=== PATIENT | female | born 1955 | race Caucasian/White ===

== ENCOUNTER → 2020-03-31 14:34 | Outpatient (BNVA) | payer MEDICARE, SELFPAY | PROVIDERS: Family Provider Family Medicine; PCP Family Medicine; Visit Provider Nurse Practitioner Family | DX: K92.1 Melena (principal); R10.9 Unspecified abdominal pain; R82.90 Unspecified abnormal findings in urine | CPT/HCPCS: 80053; 81000; 82270; 85025 ==

== ENCOUNTER 2020-04-16 13:47 | Outpatient (CLI) | payer MEDICARE, SELFPAY ==
--- NOTE | 2020-04-16 14:00 | MM_ITS ---
WS: [id number] BILATERAL SCREENING DIGITAL MAMMOGRAM WITH CAD HISTORY: screening COMPARISON: 08/22/2015 and 08/01/2014 Bilateral CC and MLO views submitted. Computer aided detection analyzed. Breast composition: The breasts are heterogeneously dense, which may obscure small masses. No suspici ous masses, microcalcifications or architectural distortion. Benign calcifications in each breast. MM/[place] [id number] IMPRESSION: BI-RADS: 2-Benign FOLLOW UP: 1 Year Follow-up
== END 2020-04-16 13:48 | disposition home or self-care (01) ==
LOC: RADSHAW 14:02
PROVIDERS: PCP Family Medicine; Visit Provider Nurse Practitioner Family
DX: Z12.31 Encounter for screening mammogram for malignant neoplasm of breast (principal)
CPT/HCPCS: 77067

== ENCOUNTER → 2020-04-17 10:00 | Outpatient (BNVA) | payer MEDICARE, SELFPAY | PROVIDERS: PCP Family Medicine; Visit Provider Family Medicine | DX: M54.5 Low back pain (principal); R10.84 Generalized abdominal pain; R25.2 Cramp and spasm; I10 Essential (primary) hypertension | CPT/HCPCS: 80061; 83735 ==

== ENCOUNTER 2020-04-30 14:01 | Outpatient (CLI) | payer MEDICARE, SELFPAY ==
--- NOTE | 2020-04-30 14:09 | CT_ITS ---
WS: [id number] CT LUNG CANCER SCREENING DLP: 80.06 mGy.cm DIvol: 2.41 mGy CLINICAL INFORMATION SCREENING VISIT: Baseline COMPARISON: 11/29/2016 FINDINGS Diagnostic quality: Satisfactory Comments: None. Lung Nodules: Benign granuloma RIGHT upper lobe. There are numerous bilateral subcentimeter nodules w hich have been stable since 11/29/2016. 6 mm slightly spiculated nodule RIGHT lower lobe, image 136 of series 3 is stable. 4 mm partially calcified nodule superior segment LEFT lower lobe, image 55 of se terrance 3 is stable. Additional lobulated nodule in the periphery LEFT upper lobe measures 5.0 mm, image 97 of series 3. There are no new or increasing nodules. No areas of groundglass attenuation. No endo bronchial lesions. Lungs: Biapical pleural thickening and scarring is stable. Chronic emphysema. Heart: Normal size heart. Other findings: Moderate sized hiatal hernia. Very mild atherosclerosis aorta. Prior cholecystectomy. Moderate increase in thoracic kyphosis. CT/CT lung screening [id number] IMPRESSION: LUNG-RADS: 2-Benign Appearance or Behavior FOLLOW UP: 12 Month: Continue annual screening with LDCT
--- NOTE | 2020-04-30 14:27 | XR_ITS ---
WS: [id number] SCREENING DEXA SCAN [employer] CLINICAL INFORMATION: post menopausal. COMPARISON: None. FINDINGS: The L1-L4 bone mineral density measures 0.955 g/cm2. This corresponds to a T score score of -1.9 and Z score of -0.8. Left femoral neck bone mineral density measures 0.897 g/cm2. This corresponds to a T score of -0.9 an d Z score of 0.0. Right femoral neck bone mineral density measures 0.898 g/cm2. This corresponds to a T score -0.9of an d Z score of 0.0. Mean femoral neck bone mineral density measures 0.897 g/cm2. This corresponds to a T score of -0.9 an d Z score of 0.0. XR/XR DEXA axial skeleton* [id number] IMPRESSION: Osteopenia Patient's FRAX calculated 10 year probability for major osteoporotic fracture i s 8.7 % and osteoporotic hip fracture is 0.9%.
== END 2020-04-30 14:02 | disposition home or self-care (01) ==
LOC: RAD 14:05
PROVIDERS: PCP Family Medicine; Visit Provider Nurse Practitioner Family
DX: Z78.0 Asymptomatic menopausal state (principal); Z87.891 Personal history of nicotine dependence; M85.89 Other specified disorders of bone density and structure, multiple sites
CPT/HCPCS: 77080; G0297

== ENCOUNTER → 2020-07-09 09:49 | Outpatient (BNVA) | payer MEDICARE, SELFPAY | PROVIDERS: PCP Family Medicine; Visit Provider Family Medicine | DX: R05 Cough (principal); R32 Unspecified urinary incontinence; U07.1 COVID-19; R06.02 Shortness of breath | CPT/HCPCS: 81000 ==

== ENCOUNTER → 2021-03-20 09:07 | Outpatient (BNVA) | payer MEDICARE, SELFPAY | PROVIDERS: PCP Family Medicine; Visit Provider Family Medicine | DX: R25.2 Cramp and spasm (principal); I10 Essential (primary) hypertension; Z87.891 Personal history of nicotine dependence; Z79.899 Other long term (current) drug therapy; Z86.39 Personal history of other endocrine, nutritional and metabolic disease | CPT/HCPCS: 80053; 80061 ==

== ENCOUNTER → 2021-03-23 08:53 | Outpatient (BNVA) | payer MEDICARE, SELFPAY | PROVIDERS: PCP Family Medicine; Visit Provider Family Medicine | DX: R25.2 Cramp and spasm (principal); I10 Essential (primary) hypertension; Z87.891 Personal history of nicotine dependence; Z79.899 Other long term (current) drug therapy; Z86.39 Personal history of other endocrine, nutritional and metabolic disease | CPT/HCPCS: 82306 ==

== ENCOUNTER 2021-04-16 12:48 | Outpatient (CLI) | payer MEDICARE, SELFPAY ==
[2021-04-16 13:44] LABS: Anion Gap 14.1 (5-19); Blood Urea Nitrogen 17 mg/dL (8-23); Calcium 8.6 mg/dL (8.5-10.5); Carbon Dioxide 24 mmol/L (22-29); Chloride 107 mmol/L (98-107); Glomerular Filtration Rate 55.1 mL/min (90-130); Glucose 86 mg/dL (65-115); NT Pro B Type Natriuretic Pept 151 pg/mL (0-125); Osmolality Calculated 293 mOsm/kg (285-295); Potassium 4.1 mmol/L (3.5-5.1); Sodium 141 mmol/L (136-145)
== END 2021-04-16 12:49 | disposition home or self-care (01) ==
PROVIDERS: PCP Family Medicine; Visit Provider Internal Medicine Cardiovascular Disease
DX: R06.02 Shortness of breath (principal); I50.33 Acute on chronic diastolic (congestive) heart failure
CPT/HCPCS: 36415; 80048; 83880

== ENCOUNTER 2021-05-21 08:21 | Outpatient (CLI) | payer MEDICARE, SELFPAY ==
--- NOTE | 2021-05-21 08:45 | USCV_ITS ---
Ney Hameed Age: 66 Gender: F : 1955 Exam Date: 05/21/2021 08:50 Ordering Phys: Madeline Rivera MD ([email or web address]) Technologist: Aye Connell Exam Location: [facility] [place] Indication: SOB BP: 150 / 90 HR: 70 Rhythm: Sinus Technical Quality: Adequate MEASUREMENTS (Male / Female) Normal Values 2D ECHO LV Diastolic Diameter PLAX 4.4 cm 4.2 - 5.9 / 3.9 - 5.3 cm LV Systolic Diameter PLAX 2.9 cm IVS Diastolic Thickness 0.9 cm 0.6 - 1.0 / 0.6 - 0.9 cm IVS Systolic Thickness 1.4 cm LVPW Diastolic Thickness 0.9 cm 0.6 - 1.0 / 0.6 - 0.9 cm LVPW Systolic Thickness 1.5 cm LVOT Diameter 2.0 cm LV Ejection Fraction 2D Teich 62.9 % LV Ejection Fraction MOD 2C 43.7 % LV Ejection Fraction 2C AL 46.3 % LA Diameter 3.0 cm LA Width 2.9 cm LA Height 5.1 cm RA Width 3.0 cm RA Height 4.1 cm Aorta at Sinotubular Diameter 2.3 cm M-MODE Aortic Annulus Diameter 2.6 cm LA Ao Ratio MM 1.1 MV E Point Septal Separation 0.4 cm DOPPLER AV Peak Velocity 117.0 cm/s LVOT Peak Velocity 61.0 cm/s AV Area Cont Eq vti 2.0 cm squared AV Area Cont Eq pk 1.7 cm squared MV Peak Velocity 105.0 cm/s MV Area PHT 4.3 cm squared Mitral E to A Ratio 0.8 MV E' Velocity 45.0 cm/s Mitral E to MV E' Ratio 9.8 Mitral E to LV E' Lateral Ratio 8.3 Mitral E to LV E' Septal Ratio 12.2 TR Peak Velocity 291.7 cm/s TR Peak Gradient 34.0 mmHg TR Mean Velocity 329.1 cm/s TR Mean Gradient 48.1 mmHg TR Velocity Time Integral 126.2 cm TV Peak E Velocity 52.0 cm/s Right Atrial Pressure 3.0 mmHg Pulmonary Artery Systolic Pressu 37.0 mmHg PV Peak Velocity 130.0 cm/s RV Acceleration Time 0.1 s RV Ejection Time 0.3 s RV AcT/ET 0.2 FINDINGS Left Ventricle Normal left ventricular size and systolic function, EF 58 %. No regional wall motion abnormalities. Grade I/IV diastolic dysfunction (abnormal relaxation filling pattern), normal to mildly elevated filling pressures. Right Ventricle The right ventricle is normal in size and function. Right Atrium The right atrium is normal in size. Left Atrium Mildly increased left atrial size. Mitral Valve No gross abnormalities noted Aortic Valve No gross abnormalities noted Tricuspid Valve No gross abnormalities noted Pulmonic Valve Pulmonic valve not well visualized. Pericardium Normal pericardium without effusion. Aorta Normal ascending aorta dimension. CONCLUSIONS Normal left ventricular size and systolic function, EF 58 %. No regional wall motion abnormalities. Grade I/IV diastolic dysfunction (abnormal relaxation filling pattern), normal to mildly elevated filling pressures. Mildly increased left atrial size. There is no pericardial effusion. There are no intracardiac masses. No previous study is available for comparison. Dr Madeline Rivera MD FAC (Electronically Signed) Final Date: 21 May 2021 19:09 S
== END 2021-05-21 08:22 | disposition home or self-care (01) ==
PROVIDERS: PCP Family Medicine; Visit Provider Internal Medicine Cardiovascular Disease
DX: R06.02 Shortness of breath (principal)
CPT/HCPCS: 93306

== ENCOUNTER 2021-05-27 07:21 | Outpatient (CLI) | payer MEDICARE, SELFPAY ==
--- NOTE | 2021-05-27 07:36 | NMCV_ITS ---
NM christina perf SPECT r/s* [id number] Ney Hameed Age: 66 Gender: F : 1955 Exam Date: 05/27/2021 08:36 Ordering Phys: Madeline Rivera MD ([email or web address]) Technologist: VIANCA Rivas Exam Location: [facility] Indications: SHORTNESS OF BREATH STRESS TEST [facility] IMAGE PROTOCOL Rest/Stress 1 Exercise Day Radiopharmaceutical Dose (mCi) Administration Site Administered by Rest: Tc-99m 10.9 IV VIANCA Freire Sestamibi Stress:Tc-99m 32.7 IV VIANCA Rivas Sesalhajimiwilber Rest: 27-May-2021 60 Discovery 630 Stress: 27-May-2021 15 Discovery 630 Radiopharmaceutical was injected at 86 % maximum heart rate. Images obtained in supine and prone position. SPECT RESULTS Technical Quality: Excellent Raw Data Analysis: Normal Image Corrections: No attenuation or motion correction applied Summed Stress Score: 0 Summed Rest Score: 0 Summed Difference Score: 0 PERFUSION FINDINGS Fairly uniform myocardial tracer uptake with no significant perfusion abnormalities FUNCTIONAL RESULTS (calculated via Gated SPECT) Stress Image LV EF (%): 86 Stress EDV (mL):56 TID: 0.92 Stress ESV (mL):8 FUNCTIONAL FINDINGS: Segmental wall motion analysis revealing no gross wall motion normalities IMPRESSIONS 1. Unremarkable myocardial perfusion imaging 2. Normal LV ejection fraction of 86%. 3. LV wall motion analysis revealing no gross wall motion of normalities. 4. Normal LV volume. No significant coronary ischemia, based on the above findings Dr Madeline Rivera MD FACC (Electronically Signed) Final Date: 28 May 2021 00:20 S
--- NOTE | 2021-05-27 07:36 | ECG_ITS ---
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 Interpretive Statements NAME OF STUDY: EXERCISE SESTAMIBI STRESS TEST INDICATION: Shortness of Breath, PROCEDURE: The baseline electrocardiogram showed normal sinus rhythm with normal ST-Ts. At the baseline, the patient's blood pressure was 143/83 mm Hg with a heart rate of 74. The patient exercised for 3 minutes on a standard Dinesh protocol. Patient attained a maximum heart rate of 136 beats per minute( 89 % of the maximum predicted heart rate) with a blood pressure at the peak exercise of 188/89 mm Hg. The EKG at the peak exercise revealed no significant changes. Patient did not have any chest pain or any significant arrhythmis with the exercise Sestamibi was injected 1 minute prior to the peak exercise During the recovery phase, there were no new changes. Blood pressure at the end of the recovery phase was 161/86 mm Hg with a heart rate of 87 per minute. CONCLUSION: 1. No significant EKG changes with the [treadmill exercise 2. No exercise-induced chest pain or cardiac arrhythmia 3. Impaired impaired exercise tolerance, attained a maximum of 4.6 METs 4. Sestamibi/Sestamibi perfusion results pending; see separate report. Electronically Signed On 05-28-2021 9:15:30 CDT by Madeline Rivera M.D. [id number]
[2021-05-27 07:47] VITALS: BMI 34.7
[2021-05-27 09:42] VITALS: BP 161/86; PULSE 84
== END 2021-05-27 07:22 | disposition home or self-care (01) ==
LOC: RAD 07:27 → CDL 07:44
PROVIDERS: PCP Family Medicine; Visit Provider Internal Medicine Cardiovascular Disease
DX: R06.02 Shortness of breath (principal)
CPT/HCPCS: 78452; 93017; A9500

== ENCOUNTER 2021-06-25 15:13 | Outpatient (CLI) | payer MEDICARE, SELFPAY ==
--- NOTE | 2021-06-25 15:15 | USCV_ITS ---
Ney Hameed Age: 66 Gender: F : 1955 Exam Date: 06/25/2021 15:49 Ordering Phys: Jhon Diez DO Technologist: Exam Location: [facility] [place] Indication: LT LEG PAIN BILAT EDEMA PROCEDURES: The venous duplex Doppler examination of both lower extremities was performed in the standard fashion. The following venous structures were evaluated: common femoral vein, profunda vein, proximal portion of the greater saphenous vein, superficial femoral vein, and the popliteal vein. FINDINGS: Normal 2-D Doppler and augmentation and compressibility throughout the lower extremity venous structures. Additional imaging through the proximal calf veins also reveals no thrombus. Limited evaluation of the greater saphenous vein is patent with no thrombus. CONCLUSIONS No DVT bilateral lower extremities. Dr. Liliana Sesay DO (Electronically Signed) Final Date: 26 June 2021 07:59 S
== END 2021-06-25 15:14 | disposition home or self-care (01) ==
LOC: RAD 15:23
PROVIDERS: PCP Family Medicine; Visit Provider Family Medicine
DX: M79.89 Other specified soft tissue disorders (principal); M79.605 Pain in left leg; R60.0 Localized edema
CPT/HCPCS: 93970

== ENCOUNTER → 2021-06-29 10:52 | Outpatient (BNVA) | payer MEDICARE, SELFPAY | PROVIDERS: PCP Family Medicine; Visit Provider Family Medicine | DX: R82.998 Other abnormal findings in urine (principal); B37.9 Candidiasis, unspecified | CPT/HCPCS: 81000 ==

== ENCOUNTER → 2022-07-05 12:22 | Outpatient (BNVA) | payer MEDICARE, SELFPAY | PROVIDERS: PCP Family Medicine; Visit Provider Family Medicine | DX: J02.9 Acute pharyngitis, unspecified (principal); I10 Essential (primary) hypertension | CPT/HCPCS: 80053; 85025; 87880 ==

== ENCOUNTER 2022-07-16 09:31 | Outpatient (CLI) | payer MEDICARE, SELFPAY ==
--- NOTE | 2022-07-16 09:37 | MM_ITS ---
WS: [id number] BILATERAL SCREENING DIGITAL TOMOSYNTHESIS MAMMOGRAM WITH CAD HISTORY: SCREENING COMPARISON: 04/16/2020 and 08/22/2015 Bilateral CC and MLO views with tomosynthesis and synthetic mammography submitted. Computer aided det ection analyzed. Breast composition: The breasts are heterogeneously dense, which may obscure small masses. No suspici ous masses, microcalcifications or architectural distortion. Benign calcifications in each breast. MM/[place] [id number] IMPRESSION: BI-RADS: 2-Benign FOLLOW UP: 1 Year Follow-up
== END 2022-07-16 09:32 | disposition home or self-care (01) ==
LOC: RAD 09:32
PROVIDERS: PCP Family Medicine; Visit Provider Family Medicine
DX: Z12.31 Encounter for screening mammogram for malignant neoplasm of breast (principal)
CPT/HCPCS: 77063; 77067

== ENCOUNTER → 2022-07-19 10:08 | Outpatient (BNVA) | payer MEDICARE, SELFPAY | PROVIDERS: PCP Family Medicine; Visit Provider Family Medicine | DX: I10 Essential (primary) hypertension (principal); E87.6 Hypokalemia | CPT/HCPCS: 80048 ==

== ENCOUNTER → 2022-08-24 16:14 | Outpatient (BNVA) | payer MEDICARE, SELFPAY | PROVIDERS: PCP Family Medicine; Visit Provider Family Medicine | DX: R32 Unspecified urinary incontinence (principal); N39.0 Urinary tract infection, site not specified; R30.0 Dysuria | CPT/HCPCS: 81000; 87086 ==

== ENCOUNTER 2022-11-12 10:27 | Outpatient (CLI) | payer MEDICARE, SELFPAY ==
--- NOTE | 2022-11-12 11:00 | FL_ITS ---
WS: [id number] Modified barium swallow, 11/12/2022 Clinical Data: Staging with fluid sticking in the throat, occasional throat pain Comparison: None. Fluoroscopy time: 2min [id number] # of spot films: 0 Findings: The patient exhibited good oral and pharyngeal transport of material. There is no penetration or aspi ration. No significant pooling of contrast occurred. However once the material entered the esophagus there were tertiary contractions an extremely poor contractions. The distal esophagus shows tortuosit y and poor transportation of material. The ingested pill toured the entire esophagus only with the as sistance of swallows of water. FL/FL barium swallow modifd [id number] Impression: 1. Satisfactory oral and pharyngeal function without aspiration or penetration. 2. Poor esophageal function with tertiary contractions and slow movement of mat erial.
== END 2022-11-12 10:28 | disposition home or self-care (01) ==
LOC: RAD 10:34
PROVIDERS: PCP Family Medicine; Visit Provider Family Medicine
DX: R13.10 Dysphagia, unspecified (principal)
CPT/HCPCS: 74230; 92611

== ENCOUNTER 2022-12-27 12:00 | Outpatient (CLI) | payer OTHER, SELFPAY ==
--- NOTE | 2022-12-27 12:19 | XRR_ITS ---
PROCEDURE INFORMATION: Exam: XR Chest Exam date and time: 12/27/2022 12:28 PM Age: 67 years old Clinical indication: Cough; Additional info: Cough for 3 months and ronchi on left TECHNIQUE: Imaging protocol: Radiologic exam of the chest. Views: 2 views. COMPARISON: CT lung screening [id number] 04/30/2020 2:09 PM FINDINGS: Lungs: There is no consolidation. Pleural spaces: There is no pleural effusion or pneumothorax. Heart/Mediastinum: Prominent left pulmonary artery. Cardiac silhouette is unremarkable. Hiatal hernia noted. Bones/joints: Bones are unremarkable. XR/XR chest 2V* [id number] IMPRESSION: No acute findings.
== END 2022-12-27 12:01 | disposition home or self-care (01) ==
LOC: RAD 12:09
PROVIDERS: PCP Family Medicine; Visit Provider Clinical Nurse Specialist Adult Health
DX: R05.9 Cough, unspecified (principal)
CPT/HCPCS: 71046

== ENCOUNTER 2023-02-09 11:18 | Observation (INO) | payer MEDICARE, SELFPAY ==
[2023-02-08 09:53] VITALS: BMI 32.6
--- NOTE | 2023-02-08 10:34 | ECG_ITS ---
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 Measurements Intervals [place] Rate: 65 P: -29 MI: 120 QRS: -27 QRSD: 79 T: -21 QT: 392 QTc: 410 Interpretive Statements SINUS RHYTHM POSSIBLE LEFT ATRIAL ENLARGEMENT [-0.1mV P-WAVE IN V1/V2] POSSIBLE ANTERIOR MYOCARDIAL INFARCTION , OF INDETERMINATE AGE [30 ms Q WAVE IN V3/V4, OR R < 0.2 mV IN V4] Compared to ECG 01/11/2017 06:24:59 Myocardial infarct finding now present Electronically Signed On 02-09-2023 0:29:32 CDT by Madeline Rivera M.D. [id number]
[2023-02-08 10:43] LABS: Add Urine Microscopic? NO; Charge for UA Resulting for Rev
[2023-02-08 10:48] LABS: Basophils # 0.1 10^3/uL (0.0-0.1); Basophils % 0.8 %; Eosinophils # 0.1 10^3/uL (0.0-0.8); Eosinophils % 1.5 %; Hematocrit 42.8 % (37.0-47.0); Hemoglobin 14.1 g/dL (11.5-15.3); Lymphocytes # 1.6 10^3/uL (0.8-4.8); Lymphocytes % 26.4 %; Mean Corpuscular HGB Conc 32.9 g/dL (30.0-36.0); Mean Corpuscular Hemoglobin 30.1 pg (28.0-34.0); Mean Corpuscular Volume 91.5 fl (81-99); Mean Platelet Volume 11.8 fL (7.4-10.4); Monocytes # 0.8 10^3/uL (0.2-0.9); Neutrophils # 3.42 10^3/uL (1.8-7.7); Nucleated Red Blood Cells % 0 %; Platelet Count 210 10^3/cmm (130-400); Red Blood Count 4.68 10^6/uL (4.1-5.3); Red Cell Distribution Width 14.5 % (12.1-15.1); White Blood Count 5.9 10^3/uL (4.0-10.0)
[2023-02-08 10:50] LABS: Urine Appearance Clear (CLEAR); Urine Color Yellow (Yellow); pH Urine 7 (5-7)
[2023-02-08 10:51] LABS: Bilirubin Urine Neg (Negative); Blood Urine Neg (Negative); Glucose Urine UA Norm (Normal); Ketones Urine Negative (Negative); Leukocyte Esterase Urine Negative (Negative); Nitrate Urine Negative (Negative); Protein Urine Neg (Negative); Specific Gravity, Urine 1.015 (1.005-1.030); Urobilinogen Urine Neg (Negative)
--- NOTE | 2023-02-08 10:53 | ANES.PREANE2 ---
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/t deafferentation) - was just given O2 mask and was able to go home that day Social No alcohol and No tobacco Exam alert, oriented x 3, clear to auscultation bilaterally and regular rate & rhythm Airway Mallampati: Class II Dentition: full Pulmonary Chronic Obstructive Pulmonary Disease CV/HEM Hypertension GI dyphagia Anesthetic Plan ASA status: 3 Anesthesia: General Risk of > 500 ml blood loss (7ml/kg in children): No Medications/Allergies Home Medications Medication Instructions Recorded Confirmed Last Taken Type calcium carbonate 300 mg (750 mg) 300 mg PO TID 07/23/20 02/08/23 Unknown History chewable tablet (Tums) cholecalciferol (vitamin D3) 25 25 mcg PO DAILY #100 caps 03/25/21 02/08/23 Unknown Rx mcg (1,000 unit) capsule bilberry 100 mg capsule 100 mg PO BID 06/24/21 02/08/23 Unknown History hydrochlorothiazide 25 mg tablet 25 mg PO DAILY blood 06/15/22 02/08/23 Unknown Rx pressure/swelling #90 tabs oxybutynin chloride 5 mg tablet 5 mg PO DAILY #30 tabs 10/27/22 02/08/23 Unknown Rx omeprazole 20 mg capsule,delayed 20 mg PO DAILY #30 caps 11/15/22 02/08/23 Unknown Rx release hawthorn hicks 525 mg PO DAILY 02/08/23 02/08/23 Unknown History magnesium 500 mg PO DAILY 02/08/23 02/08/23 Unknown History Allergies Allergy/AdvReac Type Severity Reaction Status Date / Time No Known Allergies Allergy Verified 02/07/23 08:09 [facility] Anesthesia Medical History Chronic phlebitis of superficial vein of left lower extremity Gastroesophageal reflux disease Herpes zoster dermatitis Hiatal hernia History of diverticulitis Hypertension Ovarian tumor Schatzki's ring Surgical History History of partial hysterectomy Hx of appendectomy Hx of bladder repair surgery Hx of cholecystectomy Family History Grandfather CAD (coronary artery disease) Lung disease Mother Cancer Diabetes Grandmother Dementia Family/Other Diabetes Brother Diabetes Father Lung disease Denies family history of Clotting disorder Chronic kidney disease (CKD) Suicide Anesthesia complication Bleeding disorder Stroke Social History Substance/Drug Use: never Data Anesthesia 02/08/23 10:26 02/08/23 10:26 Short CBC 02/08/23 Range/Units 10:26 WBC 5.9 (4.0-10.0) 10^3/uL Hgb 14.1 (11.5-15.3) g/dL Hct 42.8 (37.0-47.0) % MCV 91.5 (81-99) fl Plt Count 210 (130-400) 10^3/cmm Neut % (Auto) 58.0 % Neut # (Auto) 3.42 (1.8-7.7) 10^3/uL Urine 02/08/23 Range/Units 10:26 Urine Color Yellow (Yellow) Urine Appearance Clear (CLEAR) Urine pH 7 (5-7) Ur Specific [place] 1.015 (1.005-1.030) Urine Protein Neg (Negative) Urine Glucose (UA) Norm (Normal) Urine Ketones Negative (Negative) Urine Nitrate Negative (Negative) Urine Bilirubin Neg (Negative) Ur Leukocyte Esterase Negative (Negative) Cardiac Studies: Echocardiogram 05/21/21 Sestamibi Stress Test (Cardiology) 05/27/21
[2023-02-08 11:05] LABS: Alanine Aminotransferase 15 U/L (0-33); Albumin Level 4.4 g/dL (3.5-5.2); Alkaline Phosphatase 101 U/L (35-105); Anion Gap 14.9 (5-19); Aspartate Amino Transferase 20 U/L (0-32); Blood Urea Nitrogen 25 mg/dL (8-23); Calcium 9.4 mg/dL (8.5-10.5); Carbon Dioxide 26 mmol/L (22-29); Chloride 101 mmol/L (98-107); Globulin 2.6 g/dL (1.3-4.6); Glucose 88 mg/dL (65-115); Osmolality Calculated 290 mOsm/kg (285-295); Potassium 3.9 mmol/L (3.5-5.1); Sodium 138 mmol/L (136-145)
[2023-02-09] VITALS (16 sets, daily range): BP systolic 113–152; BP diastolic 61–102; PULSE 62–79; RESP 16–18; TEMP 36.1–36.7; O2SAT 95–100; BMI 32.6
[2023-02-09] MEDS: enoxaparin 30 mg/0.3 mL Syringe SUBCUT (07:28)
[2023-02-09] MEDS: sodium chloride 0.9% 1,000 ML 30 ML IV (07:28)
[2023-02-09] MEDS: scopolamine 1.5 Patch 1 PATCH TRANSDERMA (07:29)
--- NOTE | 2023-02-09 08:22 | P.ANESUD_ITS ---
Pre-Anesthetic Update Pre-Anesthetic Assessment: Date of Surgery/Procedure: 02/09/23 Preop Kristen gnosis: Mixed urinary incontinence Proposed Procedure: Operation Date: 02/09/23 08:50 Proposed Procedures p Single incision midurethral sling 71263,N39.46(Not Applicable) - Marshall Chavez MD Any changes to Pre-Anesthetic Assessment?: No Last Intake: Intake Last Liquid Date 02/08/23 Last Liquid Time 20:00 Last Solid Date 02/08/23 Last Solid Time 20:00 Labs Last 48hrs: Short CBC 02/08/23 Range/Units 10:26 WBC 5.9 (4.0-10.0) 10^3/ uL Hgb 14.1 (11.5-15.3) g/dL Hct 42.8 (37.0-47.0) % MCV 91.5 (81-99) fl Plt Count 210 (130-400) 10^3/c mm Neut % (Auto) 58.0 % Neut # (Auto) 3.42 (1.8-7.7) 10^3/u L BMP 02/08/23 10:26 Sodium 138 Potassium 3.9 Chloride 101 Carbon Dioxide 26 BUN 25 H Creatinine 0.7 Glucose 88 Calcium 9.4 Liver Function 02/08/23 Range/Units 10:26 Total Bilirubin 1.0 (0.15-1.2) mg/dL AST 20 (0-32) U/L ALT 15 (0-33) U/L Alkaline Phosphata se 101 (35-105) U/L Albumin 4.4 (3.5-5.2) g/dL Urine 02/08/23 Range/Units 10:26 Urine Color Yellow (Yellow) Urine Appearance Clear (CLEAR) Urine pH 7 (5-7) Ur Specific Gravit y 1.015 (1.005-1.030) Urine Protein Neg (Negative) Urine Glucose (UA) Norm (Normal) Urine Ketones Negative (Negative) Urine Nitrate Negative (Negative) Urine Bilirubin Neg (Negative) Ur Leukocyte Claudia ase Negative (Negative) Blood Bank 02/08/23 10:26 Blood Type O Positive Rho(D) Type Positive Antibody Screen Negative Vitals: Temperature 97.4 F L 02/09/23 07:15 Temperature Source Temporal Artery S can 02/09/23 07:15 Pulse Rate 74 02/09/23 07:15 Respiratory Rate 18 02/09/23 07:15 Blood Pressure 152/93 02/09/23 07:15 Blood Pressure Viky n 112 02/09/23 07:15 Pulse Oximetry 96 02/09/23 07:15 Oxygen Delivery Me thod Room Air 02/09/23 07:16 Exam: Pre-Anes Outpt Exam: alert, oriented x 3, clear to auscultation bilaterally and regular rate & rhythm Cardiac Studies: Echocardiogram 05/21/21 Sestamibi Stress Test (Cardiology) 05/27
--- NOTE | 2023-02-09 09:18 | W.PM.OPSUD ---
Surgery/Procedure H&P Update DATE OF PROCEDURE: February 09, 2023 DATE H&P PERFORMED: 02/07/23 H&P UPDATE INFORMATION: I have reviewed H&P completed within last 30 days, I have examined patient prior to procedure and No changes to prior documentation PREOP DIAGNOSIS: Mixed urinary incontinence PLANNED PROCEDURE: Operation Date: 02/09/23 08:50 Proposed Procedures p Single incision midurethral sling 90057,N39.46(Not Applicable) - Marshall Chavez MD
[2023-02-09] MEDS: ceFAZolin 2,000 MG in sodium chloride 0.9% (plus) 50 ML 100 MG IV (09:37)
[2023-02-09] MEDS: lidocaine-epi 2% 20 mL INJ 10 ML INJECTION (10:17)
--- NOTE | 2023-02-09 10:34 | PM.OP ---
Operative Report Date of procedure: February 09, 2023 Pre-op diagnosis: Preop Diagnosis Mixed urinary incontinence Procedure done: Single incision mid urethral sling. Cystoscope Implants: Coloplast Altis sling Surgeon: Marshall Chavez MD Estimated blood loss (mL): 50 IV fluids (mL): 400 Urine output (mL): 200 Findings: Urethral hypermobility. Procedure: After obtaining informed consent, the patient was taken to the operating room and placed in the supine position, given general anesthesia, and prepped and draped in sterile fashion. The abdomen, vulva and vagina were prepped and draped in a sterile manner. A time out procedure was performed. The anterior vaginal mucosa beneath the midurethra was infiltrated with 0.5% Marcaine with epinephrine. A vertical midline incision was made beneath the midurethra, nearly 1.5 cm length. Careful submucosal dissection was performed bilaterally up to the interior portion of the inferior pubic ramus. The insertion of adductor longus tendon on the patient?s pubic ramus was identified as reference land ayanna. Palpated the notch along the internal edge of ischiopubic ramus where the adductor longus tendon and the inferior pubic ramus meet. The Altis single incision sling (SIS) was selected. Then the needle of the SIS inserted aiming at the location of this notch. One of the integrated self-fixating tips place onto the needle by sliding it over the end of the needle. The needle/sling assembly was inserted toward the location of identified reference notch making sure that the flat of the handle is perpendicular to the desired path. The needle was tracked along the posterior surface of the ischiopubic ramus until the midline ayanna on the mesh is approximately at the midline position under the urethra. The needle was removed and the same was repeated on the contralateral side until the appropriate sling tension under the urethra was achieved ensuring that the mesh lays flat. The needle was removed and vaginal incision was closed in a running interlocking fashion with 2-0 Vicryl. Then the Romeo catheter was removed and cystoscope was inserted. The bladder was filled with sterile water. Complete evaluation of the bladder mucosa was performed noting no lacerations, dimpling, tears, bleeding of the mucosa or muscular layers. Both ureteral orifices were identified. Prompt excretion of urine from both ureteral orifices was noted. Cystoscope was withdrawn. The Romeo catheter was replaced. Excellent hemostasis was obtained. A vaginal pack is placed overnight as postoperative support for the vaginal tissues after graft placement and closure of vaginal incisions. Sponge, lap, needle, and instrument counts were correct times three. The patient was taken to the recovery room, awake and in stable condition.
[2023-02-09] MEDS: ketorolac 30 mg/mL INJ IVP ×2 (13:03→21:41)
--- NOTE | 2023-02-09 14:06 | ANE.PACU2 ---
Inpatient post-anesthesia follow up: Airway intact: Yes Vital signs: Temperature 98.0 F Pulse Rate 73 Respiratory Rate 16 Blood Pressure 126/78 Pulse Oximetry 97 Oxygen Delivery Me thod Room Air Oxygen Flow Rate Fraction of Inspir ed Oxygen Hydration adequate: Yes Nausea and vomiting: No Pain level: 1 Mental status: Baseline
[2023-02-09 15:27] LABS: Hematocrit 42.7 % (37.0-47.0); Hemoglobin 13.8 g/dL (11.5-15.3); Mean Corpuscular HGB Conc 32.3 g/dL (30.0-36.0); Mean Corpuscular Hemoglobin 30.2 pg (28.0-34.0); Mean Corpuscular Volume 93.4 fl (81-99); Mean Platelet Volume 12.8 fL (7.4-10.4); Platelet Count 187 10^3/cmm (130-400); Red Blood Count 4.57 10^6/uL (4.1-5.3); Red Cell Distribution Width 14.4 % (12.1-15.1); White Blood Count 8.3 10^3/uL (4.0-10.0)
[2023-02-09] MEDS: docusate sodium 100 mg Capsule PO (17:58)
[2023-02-09] MEDS: simethicone 80 mg Chew PO (21:41)
[2023-02-09] MEDS: dextrose 5%-lactated ringers 1,000 ML 125 ML IV (21:43)
[2023-02-10 04:57] VITALS: BP 117/58; PULSE 63; RESP 16; TEMP 36.6; O2SAT 96
--- NOTE | 2023-02-10 05:07 | PC.NURSE ---
Romeo catheter removed at 0505, intact patient tolerated procedure well.
[2023-02-10] MEDS: simethicone 80 mg Chew PO (05:12)
[2023-02-10 05:59] LABS: Hemoglobin 12.3 g/dL (11.5-15.3); Mean Corpuscular HGB Conc 32.4 g/dL (30.0-36.0); Mean Corpuscular Hemoglobin 30.3 pg (28.0-34.0); Mean Corpuscular Volume 93.6 fl (81-99); Mean Platelet Volume 12.7 fL (7.4-10.4); Platelet Count 192 10^3/cmm (130-400); Red Blood Count 4.06 10^6/uL (4.1-5.3); Red Cell Distribution Width 14.3 % (12.1-15.1); White Blood Count 11.7 10^3/uL (4.0-10.0)
--- NOTE | 2023-02-10 08:15 | P.DS_ITS ---
Discharge Providers CHILD PROTECTION SPECIALIST Date of Admission: 02/09/23 11:18 Date of Discharge: 02/10/23 Attending Provider at Admission: Marshall Chavez MD Attending Provider at Discharge: Marshall Chaevz MD Primary CHILD PROTECTION SPECIALIST: Marshall Chavez MD Primary Care Provider: Jacqui Becerra MD Hospital Course Hospital Course Mrs. Hameed 67-year-old female with a history of stress urinary incontinence admitted for planned single incision mid urethral sling. The procedure was performed without complication. Overnight observation was uneventful. She is afebrile and hemodynamically stable postoperative day 1. Tolerating diet well. PVR [within normal limits]. Pain well under control. She was counseled regarding weight lifting limitations to no greater than 10 pounds, and pelvic rest for 6 weeks (no sex, no tampons, no vaginal douches). Return to the emergency room if any fever, increased bleeding or pain. Physical Exam Narrative: GA: Alert and oriented ?3. HEENT: WNL. Heart: Regular rate and rhythm. Lungs: Clear to auscultation bilaterally. Abdomen: Bowel sounds present, nontender, minimal tenderness, incision clean and dry, no redness, pain or edema. SAWMILL EQUIPMENT OPERATOR: Spotting bleeding. Extremities: No edema, no cyanosis, no calves pain. Urinary Catheter Management: Romeo: Cath Placed During This Visit: yes Urinary Catheter Date of Insertion: 02/09/23 Urinary Catheter Time of Insertion: 10:05 History History History 2 Term 2 0 Miscarriages/Ectopic 0 Living Children 2 Discharge Data Studies Completed and Pending Pending at discharge Category Date Time Status Hemagram AM LABS Lab 02/11/23 04:00 Ordered Laboratory Results WBC 11.7 10^3/uL (4.0-10.0) H 02/10/23 05:05 RBC 4.06 10^6/uL (4.1-5.3) L 02/10/23 05:05 Hgb 12.3 g/dL (11.5-15.3) 02/10/23 05:05 Hct 38.0 % (37.0-47.0) 02/10/23 05:05 MCV 93.6 fl (81-99) 02/10/23 05:05 MCH 30.3 pg (28.0-34.0) 02/10/23 05:05 MCHC 32.4 g/dL (30.0-36.0) 02/10/23 05:05 RDW 14.3 % (12.1-15.1) 02/10/23 05:05 Plt Count 192 10^3/cmm (130-400) 02/10/23 05:05 MPV 12.7 fL (7.4-10.4) H 02/10/23 05:05 Neut % (Auto) 58.0 % 02/08/23 10:26 Lymph % (Auto) 26.4 % 02/08/23 10:26 [place] % (Auto) 13.0 % 02/08/23 10:26 Eos % (Auto) 1.5 % 02/08/23 10:26 Baso % (Auto) 0.8 % 02/08/23 10:26 Neut # (Auto) 3.42 10^3/uL (1.8-7.7) 02/08/23 10:26 Lymph # (Auto) 1.6 10^3/uL (0.8-4.8) 02/08/23 10:26 [place] # (Auto) 0.8 10^3/uL (0.2-0.9) 02/08/23 10:26 Eos # (Auto) 0.1 10^3/uL (0.0-0.8) 02/08/23 10:26 Baso # (Auto) 0.1 10^3/uL (0.0-0.1) 02/08/23 10:26 Nucleated RBC % (auto) 0 % 02/08/23 10:26 Nucleated RBCs # 0.0 /100WBC 02/08/23 10:26 Sodium 138 mmol/L (136-145) 02/08/23 10:26 Potassium 3.9 mmol/L (3.5-5.1) 02/08/23 10:26 Chloride 101 mmol/L (98-107) 02/08/23 10:26 Carbon Dioxide 26 mmol/L (22-29) 02/08/23 10:26 Anion Gap 14.9 (5-19) 02/08/23 10:26 BUN 25 mg/dL (8-23) H 02/08/23 10:26 Creatinine 0.7 mg/dL (0.5-0.9) 02/08/23 10:26 GFR Calculation 83.0 mL/min (90-130) L 02/08/23 10:26 Glucose 88 mg/dL (65-115) 02/08/23 10:26 Calculated Osmolality 290 mOsm/kg (285-295) 02/08/23 10:26 Calcium 9.4 mg/dL (8.5-10.5) 02/08/23 10:26 Total Bilirubin 1.0 mg/dL (0.15-1.2) 02/08/23 10:26 AST 20 U/L (0-32) 02/08/23 10:26 ALT 15 U/L (0-33) 02/08/23 10:26 Alkaline Phosphatase 101 U/L (35-105) 02/08/23 10:26 Total Protein 7.0 g/dL (6.6-8.7) 02/08/23 10: Albumin 4.4 g/dL (3.5-5.2) 02/08/23 10:26 Globulin 2.6 g/dL (1.3-4.6) 02/08/23 10:26 Urine Color Yellow (Yellow) 02/08/23 10:26 Urine Appearance Clear (CLEAR) 02/08/23 10:26 Urine pH 7 (5-7) 02/08/23 10:26 Ur Specific [place] 1.015 (1.005-1.030) 02/08/23 10:26 Urine Protein Neg (Negative) 02/08/23 10:26 Urine Glucose (UA) Norm (Normal) 02/08/23 10:26 Urine Ketones Negative (Negative) 02/08/23 10:26 Urine Blood Neg (Negative) 02/08/23 10:26 Urine Nitrate Negative (Negative) 02/08/23 10:26 Urine Bilirubin Neg (Negative) 02/08/23 10:26 Urine Urobilinogen Neg mg/dL (Negative) 02/08/23 10:26 Ur Leukocyte Esterase Negative (Negative) 02/08/23 10:26 Blood Type O Positive 02/08/23 10:26 Rho(D) Type Positive 02/08/23 10:26 Antibody Screen Negative 02/08/23 10:26 Vitals Last Vital Signs Temp 97.9 F 02/10/23 04:57 Pulse 63 02/10/23 04:57 Resp 16 02/10/23 04:57 BP 117/58 02/10/23 04:57 Pulse Ox 96 02/10/23 04:57 O2 Del Method Room Air 02/10/23 04:57 Discharge Plan Discharge Patient Disposition: Home Condition: Stable Prescriptions: New ibuprofen 800 mg tablet 800 mg PO TID PRN (Reason: pain) Qty: 60 0RF acetaminophen 325 mg capsule 325 mg PO Q4H PRN (Reason: fever or pain) Qty: 60 0RF Continued calcium carbonate [Tums] 300 mg (750 mg) tablet,chewable 300 mg PO TID bilberry 100 mg capsule 100 mg PO BID omeprazole 20 mg capsule,delayed release(DR/EC) 20 mg PO DAILY Qty: 30 2RF oxybutynin chloride 5 mg tablet 5 mg PO DAILY Qty: 30 2RF cholecalciferol (vitamin D3) 25 mcg (1,000 unit) capsule 25 mcg PO DAILY Qty: 100 12RF hydrochlorothiazide 25 mg tablet 25 mg PO DAILY Qty: 90 1RF hawthorn hicks capsule 525 mg PO DAILY magnesium 500 mg PO DAILY Discharge Orders: Discharge Order (Routine); Ordered 02/10/23 Ordered By: Marshall Chavez Referrals: Marshall Chavez MD [Physician] - 2 weeks Discharge Diet: Usual diet Discharge Activity: Limit activity as instructed Patient Instructions: Cystoscopy (DC), Bladder Sling for Women (DC), OB Discharge Report, OB Food/Drug Interaction Guide, Opioid Safety Activity Restrictions/Additional Instructions: 1. Please call [facility] on next working day to make your post-operative appointment in 2 weeks. 2. Please stay home until you come back to the clinic on first post- hospatilization check up. 3. Please follow instructions on your medications CAREFULLY. 4. If you have abdominal incision, do not cover it unless dressing is necessary because of drainage. OK to shower, but avoid bath. Leave steri-strips until they fall off. If they are still on one week after surgery, you may remove them. 5. If you had vaginal surgery or vaginal repair, Dr. Chavez may instruct you to take SITZ bath. 6. Yellow, blood tinged odorous vaginal discharge is usually normal after hysterectomy or vaginal surgeries. 7. No SEXUAL INTERCOURSE, tampons, or douches until you are completely released from the post-operative care. 8. Avoid constipation by eating right and maybe using some Metamucil or Milk of Magnesia. 9. All prescription refills are given during the working hours. Please do no wait till it runs out. Call the clinic at [phone] before your medication runs out. The clinic will get in touch with your doctor to prescribe medications if necessary. 10. Please remain within 40 mile radius from our hospital because emergencies do happen now and then during the post-operative period. 11. If you have stairs at home, take one step at a time slowly and minimize the number of trips. It helps to stay in one floor for the next few days. No lifting except what you can lift by one hand until you are released from the post-operative care. 12. Driving is discouraged until you are well healed. It may be 3-4 weeks before you feel strong enough to drive. You should be able to turn and look through the rear window without pain and you should be able to push the brake pedal very hard without pain before you drive. No fast rules, but SAFETY should be your primary concern. DO NOT drive if you are on sedating medications such as narcotics. 13. Call the clinic (during working hours) to make urgent appointment or go to the Emergency room, if any of the following occurs: i. Vaginal bleeding becomes heavy, more than a period. ii. Incision becomes red and sore, or drains pus. iii. Your TEMPERATURE is over 100.4F or you have chill. iv. IV site becomes red and swollen (a little ``knot?? is usually OK) v. Persistent nausea and vomiting vi. Persistent constipation or diarrhea vii. Rash or allergic reaction to medications. Discharge Attestations CHILD PROTECTION SPECIALIST Time Spent in Discharge Care*: greater than 30 min Coding Level of Care Code Acute Code for Chg Fwd Diagnoses
[2023-02-10 10:03] VITALS: BP 133/62; PULSE 62; RESP 16; TEMP 36.7
[2023-02-10 10:18] VITALS: BP 133/62; PULSE 62; RESP 16; TEMP 36.7
== END 2023-02-10 10:05 | disposition home or self-care (01) ==
LOC: CSU 11:19 → OBGYN 11:19
PROVIDERS: Admitting Provider Obstetrics & Gynecology; PCP Family Medicine; Visit Provider Obstetrics & Gynecology
PROC: (CPT 57288; principal; 2023-02-09 08:40)
PROC: 0TJB8ZZ Inspection of Bladder, Via Natural or Artificial Opening Endoscopic (ICD-10-PCS; CPT 52000; 2023-02-09 08:40)
DX: N39.46 Mixed incontinence (principal); N36.41 Hypermobility of urethra; I10 Essential (primary) hypertension; J44.9 Chronic obstructive pulmonary disease, unspecified; K21.9 Gastro-esophageal reflux disease without esophagitis
CPT/HCPCS: 57288; 36415; 80053; 81003; 85025; 85027; 86850; 86900; 93005; 96374; 96376; C1713; G0378; J0690; J1100; J1650; J1885; J2250; J2405; J2704; J2710; J3010; J3490; J7030; J7121

== ENCOUNTER 2023-02-19 12:31 | Emergency (ER) | payer MEDICARE, SELFPAY ==
[2023-02-19 12:35] VITALS: BP 135/86; PULSE 98; RESP 18; TEMP 37.2; O2SAT 97
--- NOTE | 2023-02-19 12:46 | CTR_ITS ---
PROCEDURE INFORMATION: Exam: CT Abdomen And Pelvis With Contrast Exam date and time: 02/19/2023 1:03 PM Age: 67 years old Clinical indication: Abdominal pain; Prior surgery; Surgery date: <1 month; Surgery type: Strap in bladder; Additional info: Abd pain TECHNIQUE: Imaging protocol: Computed tomography of the abdomen and pelvis with contrast. Radiation optimization: All CT scans at this facility use at least one of these dose optimization techniques: automated exposure control; mA and/or kV adjustment per patient size (includes targeted exams where dose is matched to clinical indication); or iterative reconstruction. Contrast material: OMNI 350; Contrast volume: 100 ml; Contrast route: INTRAVENOUS (IV); REPORTING DATA: Count of CT and Cardiac NM exams in prior 12 months: This patient has received 0 known CTs and 0 known cardiac nuclear medicine studies in the 12 months prior to the current study. COMPARISON: CT abdomen pelvis w con* [id number] 08/08/2016 12:31 PM RADIATION DOSE METRICS: Total DLP (mGy-cm): 620.9 FINDINGS: Inferior thorax: Interstitial prominence. 6 mm right middle lobe and left lower lobe nodules. For patients at low risk (minimal or absent history of smoking and of other known risk factors), recommend CT Chest at 3-6 months, then consider CT Chest at 18-24 months. For patients at high risk (history of smoking or of other known risk factors), recommend CT Chest at 3-6 months, then CT Chest at 18-24 months. (Reference: [facility]). Hiatal hernia with wall thickening. Liver: Fatty infiltration of the liver and 12 mm left hepatic lobe cyst, which previously measured 9 mm. Gallbladder and bile ducts: Status post cholecystectomy. Pancreas: No pancreatic mass or ductal dilatation. Spleen: No splenomegaly. 7 mm accessory spleen. Adrenal glands: Unremarkable adrenals. Kidneys and ureters: 1 mm nonobstructing left renal calculus. Stomach and bowel: Diverticula, without pericolonic inflammation. Appendix: Nonvisualization of the appendix. Intraperitoneal space: No significant free fluid. Vasculature: Vascular calcification. No abdominal aortic aneurysm. Venous collaterals. Lymph nodes: Reactive inguinal lymph nodes. Urinary bladder: Unremarkable bladder. Reproductive: Status post hysterectomy with complex fluid and air-filled vaginal cysts. Bones/joints: Degenerative change with prominent lumbar facet arthropathy. Soft tissues: Stable postoperative change in the pelvis. CT/CT abdomen pelvis w con* [id number] IMPRESSION: 1. Hiatal hernia with wall thickening. 2. 1 mm nonobstructing left renal calculus. 3. Additional findings as described above.
[2023-02-19] MEDS: sodium chloride 0.9% 1,000 ML 999 ML IV (12:55)
[2023-02-19 12:56] VITALS: BP 124/100; O2SAT 100
[2023-02-19 12:57] LABS: Basophils % 0.4 %; Eosinophils # 0.1 10^3/uL (0.0-0.8); Eosinophils % 0.6 %; Hematocrit 40.8 % (37.0-47.0); Hemoglobin 12.8 g/dL (11.5-15.3); Lymphocytes # 1.1 10^3/uL (0.8-4.8); Mean Corpuscular HGB Conc 31.4 g/dL (30.0-36.0); Mean Corpuscular Hemoglobin 29.6 pg (28.0-34.0); Mean Corpuscular Volume 94.4 fl (81-99); Mean Platelet Volume 11.6 fL (7.4-10.4); Monocytes # 1.1 10^3/uL (0.2-0.9); Monocytes % 13.2 %; Neutrophils # 5.65 10^3/uL (1.8-7.7); Neutrophils % 71.3 %; Nucleated Red Blood Cells % 0 %; Platelet Count 224 10^3/cmm (130-400); Red Blood Count 4.32 10^6/uL (4.1-5.3); White Blood Count 7.9 10^3/uL (4.0-10.0)
[2023-02-19 13:00] VITALS: BP 124/100; O2SAT 100
--- NOTE | 2023-02-19 13:00 | ED_ITS ---
HPI - Abdominal Pain General: Chief Complaint: Abdominal Pain Stated Complaint: nauseas/diarrhea/passing blood Time Seen by Provider: 02/19/23 12:41 Source: patient Mode of arrival: ambulatory History of Present Illness: 67-year-old female presents emergency room complaining of vaginal bleeding. On 02/09 of this year she had a bladder suspension. She is complaining of abdominal pain suprapubic region since that time. She does not believe she is having hematuria states she has not had any incontinence since she had a bladder suspension. She also states she has pain radiating to her right hip worse when she coughs no recent fall or trauma. MD elicited complaint: abdominal pain Onset (ago): day(s) Pain Consistency: intermittent Location: Suprapubic Severity: mild Quality: sharp Radiation: other (Right hip) Exacerbating factors: other (Coughing) Associated Symptoms: Reports hematuria and nausea; Denies anorexia, belching, bloating, change in bowel habits, change in stool character, chills, coffee ground emesis, constipation, GI cramping, diarrhea, dyspepsia, dysuria, excessive flatus, fever(s), heartburn, hematochezia, hematemesis, fecal incontinence, loose stools, melena, poor appetite, syncope and vomiting Review of Systems Const: Denies: fever(s), chills, fatigue or malaise ENMT: Denies: throat pain, ear or mastoid pain, nasal discharge or nasal con gestion Card: Denies: chest pain, palpitations, irregular heart rhythm, edema or syncope Resp: Denies: dyspnea, productive cough or non-productive cough GI: Reports: abdominal pain and nausea; Denies: vomiting, hematemesis, coffee ground emesis, heartburn, diarrhea, constipation, bloating, GI cramping, belching, excessive flatus, fecal incontinence, change in bowel habits, change in stool character, hematochezia or melena : Reports: hematuria; Denies: dysuria or urinary frequency Skin/Breast: Denies: rash or pruritus PFSH ED PFSH: Medical History Chronic phlebitis of superficial vein of left lower extremity Gastroesophageal reflux disease Herpes zoster dermatitis Hiatal hernia History of diverticulitis Hypertension Ovarian tumor Schatzki's ring Surgical History History of partial hysterectomy Hx of appendectomy Hx of bladder repair surgery Hx of cholecystectomy Family History Grandfather CAD (coronary artery disease) Lung disease Mother Cancer Diabetes Grandmother Dementia Family/Other Diabetes Brother Diabetes Father Lung disease Denies family history of Clotting disorder Chronic kidney disease (CKD) Suicide Anesthesia complication Bleeding disorder Stroke Social History Substance/Drug Use: never Physical Exam Const: GENERAL APPEARANCE: cooperative and comfortable ORIENTATION/CONSCIOUSNESS: Yes awake, Yes oriented to person, Yes oriented to place and Yes oriented to time HENMT: COMMON NORMALS: normocephalic, atraumatic and hearing grossly normal bilaterally HEAD & SCALP: normocephalic and atraumatic Resp: COMMON NORMALS: normal respiratory effort, No retractions, No use of accessory muscles and clear to auscultation bilaterally AUSCULTATION: clear to auscultation bilaterally Cardio: COMMON NORMALS: regular rate, regular rhythm and No murmurs present (Cardio) RATE: regular rate RHYTHM: regular rhythm GI: COMMON NORMALS: Soft to palpation and No hepatosplenomegaly present AUSCULTATION: Yes normoactive bowel sounds PALPATION: Yes Soft to palpation, No Tenderness to palpation present (GI), No Guarding due to palpation present (GI) and Yes No hepatosplenomegaly present Extremity: COMMON NORMALS: normal to inspection, capillary refill normal, no clubbing, cyanosis or edema, no calf tenderness and no pedal edema Neuro: SENSORIUM/ORIENTATION: Yes oriented to person, Yes oriented to place and Yes oriented to time Skin: COMMON NORMALS: no rashes or lesions noted GENERAL SKIN EXAM: no rashes or lesions noted Course Vital Signs: Vital signs: Vital Signs Temperature 98.9 F 02/19/23 12:35 Pulse Rate 98 02/19/23 12:35 Respiratory Rate 18 02/19/23 12:35 Blood Pressure 191/99 02/19/23 14:30 Pulse Oximetry 98 02/19/23 14:00 MDM - Abdominal Pain Medical Decision Making ET does not show any infection no hematoma no abscess. Urine was unremarkable. Patient had urethral sling which was done through an anterior vaginal wall approach is suspect some of her bleeding is from there is no sign of active infection or compromise this time white count is normal hemoglobin is stable we will have her follow-up with gynecology office where she had the surgery done this coming week. Continue routine postop cares as instructed at time of discharge from her surgery she has fever sweats or chills or other worsening problems return to emergency room Medical Records I reviewed the patient's medical records. Lab Data I reviewed the patient's lab results. 02/19/23 12:50 02/19/23 12:50 Labs/Radiology: Radiology Impressions Abdomen/Pelvis CT 02/19/23 12:46 IMPRESSION: 1. Hiatal hernia with wall thickening. 2. 1 mm nonobstructing left renal calculus. 3. Additional findings as described above. Laboratory Results WBC 7.9 10^3/uL (4.0-10.0) 02/19/23 12:50 RBC 4.32 10^6/uL (4.1-5.3) 02/19/23 12:50 Hgb 12.8 g/dL (11.5-15.3) 02/19/23 12:50 Hct 40.8 % (37.0-47.0) 02/19/23 12:50 MCV 94.4 fl (81-99) 02/19/23 12:50 MCH 29.6 pg (28.0-34.0) 02/19/23 12:50 MCHC 31.4 g/dL (30.0-36.0) 02/19/23 12:50 RDW 15.0 % (12.1-15.1) 02/19/23 12:50 Plt Count 224 10^3/cmm (130-400) 02/19/23 12:50 MPV 11.6 fL (7.4-10.4) H 02/19/23 12:50 Neut % (Auto) 71.3 % 02/19/23 12:50 Lymph % (Auto) 14.0 % 02/19/23 12:50 [place] % (Auto) 13.2 % 02/19/23 12:50 Eos % (Auto) 0.6 % 02/19/23 12:50 Baso % (Auto) 0.4 % 02/19/23 12:50 Neut # (Auto) 5.65 10^3/uL (1.8-7.7) 02/19/23 12:50 Lymph # (Auto) 1.1 10^3/uL (0.8-4.8) 02/19/23 12:50 [place] # (Auto) 1.1 10^3/uL (0.2-0.9) H 02/19/23 12:50 Eos # (Auto) 0.1 10^3/uL (0.0-0.8) 02/19/23 12:50 Baso # (Auto) 0.0 10^3/uL (0.0-0.1) 02/19/23 12:50 Nucleated RBC % (auto) 0 % 02/19/23 12:50 Nucleated RBCs # 0.0 /100WBC 02/19/23 12:50 Sodium 137 mmol/L (136-145) 02/19/23 12:50 Potassium 4.0 mmol/L (3.5-5.1) 02/19/23 12:50 Chloride 102 mmol/L (98-107) 02/19/23 12:50 Carbon Dioxide 23 mmol/L (22-29) 02/19/23 12:50 Anion Gap 16.0 (5-19) 02/19/23 12:50 BUN 18 mg/dL (8-23) 02/19/23 12:50 Creatinine 1.1 mg/dL (0.5-0.9) H 02/19/23 12:50 GFR Calculation 49.2 mL/min (90-130) L 02/19/23 12:50 Glucose 125 mg/dL (65-115) H 02/19/23 12:50 Calculated Osmolality 287 mOsm/kg (285-295) 02/19/23 12:50 Calcium 9.0 mg/dL (8.5-10.5) 02/19/23 12:50 Total Bilirubin 0.8 mg/dL (0.15-1.2) 02/19/23 12:50 AST 22 U/L (0-32) 02/19/23 12:50 ALT 17 U/L (0-33) 02/19/23 12:50 Alkaline Phosphatase 94 U/L (35-105) 02/19/23 12:50 Total Protein 6.5 g/dL (6.6-8.7) L 02/19/23 12:50 Albumin 4.0 g/dL (3.5-5.2) 02/19/23 12:50 Globulin 2.5 g/dL (1.3-4.6) 02/19/23 12:50 Lipase 33 U/L (13-60) 02/19/23 12:50 Urine Color [place] (Yellow) 02/19/23 13:38 Urine Appearance Clear (CLEAR) 02/19/23 13:38 Urine pH 5 (5-7) 02/19/23 13:38 Ur Specific [place] 1.010 (1.005-1.030) 02/19/23 13:38 Urine Protein Neg (Negative) 02/19/23 13:38 Urine Glucose (UA) Norm (Normal) 02/19/23 13:38 Urine Ketones Negative (Negative) 02/19/23 13:38 Urine Blood Trace (Negative) H 02/19/23 13:38 Urine Nitrate Negative (Negative) 02/19/23 13:38 Urine Bilirubin Neg (Negative) 02/19/23 13:38 Urine Urobilinogen Norm mg/dL (Negative) 02/19/23 13:38 Ur Leukocyte Esterase Negative (Negative) 02/19/23 13:38 Urine RBC Rare /hpf (0-2) 02/19/23 13:38 Urine WBC 0-4 /hpf (0-5) H 02/19/23 13:38 Ur Squamous Epith Cells Rare /hpf (0-5) 02/19/23 13:38 Amorphous Sediment Not Reportable 02/19/23 13:38 Urine Bacteria Trace /hpf (NONE) 02/19/23 13:38 Discharge Plan Discharge Patient Disposition: Home Clinical Impression: Post-op pain, Pain, pelvic, female Condition: Stable Prescriptions: No Action calcium carbonate [Tums] 300 mg (750 mg) tablet,chewable 300 mg PO TID bilberry 100 mg capsule 100 mg PO BID omeprazole 20 mg capsule,delayed release(DR/EC) 20 mg PO DAILY Qty: 30 2RF oxybutynin chloride 5 mg tablet 5 mg PO DAILY Qty: 30 2RF cholecalciferol (vitamin D3) 25 mcg (1,000 unit) capsule 25 mcg PO DAILY Qty: 100 12RF hydrochlorothiazide 25 mg tablet 25 mg PO DAILY Qty: 90 1RF hawthorn hicks capsule 525 mg PO DAILY magnesium 500 mg PO DAILY ibuprofen 800 mg tablet 800 mg PO TID PRN (Reason: pain) Qty: 60 0RF acetaminophen 325 mg capsule 325 mg PO Q4H PRN (Reason: fever or pain) Qty: 60 0RF Zyrtec 10 mg Capsule 10 mg PO DAILY PRN (Reason: Allergy Symptoms) Discharge Orders: Discharge ED (Routine); Ordered 02/19/23 Ordered By: Bryant Zavala Referrals: Jacqui Becerra MD [Primary Care Provider] - Discharge Diet: Usual diet Patient Instructions: Opioid Safety, Pain Management Activity Restrictions/Additional Instructions: You are seen today for postop discomfort after your bladder sling. Urine white count and CT of the abdomen pelvis were unremarkable. Recommend that you follow-up with Dr. Chavez or one of his colleagues this coming week. Continue postop instructions given by Dr. Chavez at the time of discharge from your procedure. Coding Level of Care Code ED Surgical Appliances Salesperson for Aidan Villavicencio
[2023-02-19] MEDS: iohexol 350 mg/mL 500 mL Btl (per mL) IV (13:08)
[2023-02-19 13:12] LABS: Alanine Aminotransferase 17 U/L (0-33); Alkaline Phosphatase 94 U/L (35-105); Aspartate Amino Transferase 22 U/L (0-32); Blood Urea Nitrogen 18 mg/dL (8-23); Carbon Dioxide 23 mmol/L (22-29); Chloride 102 mmol/L (98-107); Globulin 2.5 g/dL (1.3-4.6); Glomerular Filtration Rate 49.2 mL/min (90-130); Glucose 125 mg/dL (65-115); Lipase 33 U/L (13-60); Osmolality Calculated 287 mOsm/kg (285-295); Sodium 137 mmol/L (136-145); Total Bilirubin 0.8 mg/dL (0.15-1.2); Total Protein 6.5 g/dL (6.6-8.7)
[2023-02-19 13:30] VITALS: BP 129/101; O2SAT 97
[2023-02-19 13:52] LABS: Urine Appearance Clear (CLEAR); Urine Color Straw (Yellow); pH Urine 5 (5-7)
[2023-02-19 13:53] LABS: Add Urine Culture? No; Add Urine Microscopic? YES; Bacteria Urine TRACE /hpf; Bilirubin Urine Neg (Negative); Blood Urine Trace (Negative); Glucose Urine UA Norm (Normal); Ketones Urine Negative (Negative); Leukocyte Esterase Urine Negative (Negative); Nitrate Urine Negative (Negative); Protein Urine Neg (Negative); RBC Urine RARE /hpf (0-2); Squamous Epithelial Cell Urine RARE /hpf (0-5); Urobilinogen Urine Norm (Negative); WBC Urine 0-4 /hpf (0-5)
[2023-02-19 14:00] VITALS: BP 156/84; O2SAT 98
[2023-02-19 14:30] VITALS: BP 191/99
== END 2023-02-19 14:39 | disposition home or self-care (01) ==
PROVIDERS: Emergency Provider Family Medicine; PCP Family Medicine
DX: G89.18 Other acute postprocedural pain (principal); R10.2 Pelvic and perineal pain; I10 Essential (primary) hypertension; Z96.0 Presence of urogenital implants
CPT/HCPCS: 51701; 74177; 80053; 81001; 83690; 85025; 96360; 99285; J7030; Q9967

== ENCOUNTER → 2023-04-05 15:42 | Outpatient (BNVA) | payer MEDICARE, SELFPAY | PROVIDERS: PCP Family Medicine; Visit Provider Obstetrics & Gynecology | DX: R39.89 Other symptoms and signs involving the genitourinary system (principal); R39.9 Unspecified symptoms and signs involving the genitourinary system; K59.00 Constipation, unspecified; R10.2 Pelvic and perineal pain | CPT/HCPCS: 81000 ==

== ENCOUNTER 2023-04-14 15:20 | Outpatient (CLI) | payer MEDICARE, SELFPAY ==
--- NOTE | 2023-04-14 16:00 | US_ITS ---
WS: [id number] US pelv w/transvag [id number] HISTORY: R10.2 - Pelvic and perineal pain COMPARISON: CT 02/19/2023. As per history patient is status post complete hysterectomy. Transabdominal and transvaginal imaging has been submitted. No soft tissue masses are identified with in the pelvis. There is a large amount of peristalsing bowel loops within the pelvis. There is no abn ormality noted at the vaginal cuff. No adnexal masses. No free fluid. Complex fluid in the vaginal canal seen on the recent CT of 02/19/2023 are not identified. This may [place] ve been mucous and debris within the vaginal canal at that time. By pelvic ultrasound no abnormality is identified. Air is noted within the adjacent rectum. Vaginal canal would more optimally be evaluat ed by direct visualization. US/US pelv w/transvag [id number] IMPRESSION: 1. Status post complete hysterectomy. 2. No midline pelvic mass or adnexal masses identified.
== END 2023-04-14 15:21 | disposition home or self-care (01) ==
PROVIDERS: PCP Family Medicine; Visit Provider Obstetrics & Gynecology
DX: R10.2 Pelvic and perineal pain (principal); Z90.710 Acquired absence of both cervix and uterus
CPT/HCPCS: 76830; 76856

== ENCOUNTER 2023-05-10 12:43 | Observation (INO) | payer MEDICARE, SELFPAY ==
[2023-05-09 09:34] VITALS: BMI 32.8
[2023-05-09 10:35] LABS: Urine Appearance Clear (CLEAR); Urine Color Yellow (Yellow)
[2023-05-09 10:36] LABS: Add Urine Culture? No; Add Urine Microscopic? YES; Bacteria Urine TRACE /hpf; Bilirubin Urine Neg (Negative); Blood Urine Neg (Negative); Glucose Urine UA Norm (Normal); Ketones Urine Negative (Negative); Leukocyte Esterase Urine 1+ (Negative); Nitrate Urine Negative (Negative); Protein Urine Neg (Negative); Specific Gravity, Urine 1.025 (1.005-1.030); Squamous Epithelial Cell Urine 0-4 /hpf (0-5); Urobilinogen Urine Norm (Negative); pH Urine 5 (5-7)
--- NOTE | 2023-05-09 11:05 | ANES.PREANE2 ---
Pre-Anesthetic Assessment Height/Weight: Height 1.55 m Weight 78.925 kg Operation Date: 05/10/23 11:05 Proposed Procedures p Sling revision 95005,T83.607H(Not Applicable) - Marshall Chavez MD Familial anesthetic complications: none Was Beta Josiah taken within 24 hours: N/A Was Clonidine taken within 24 hours: N/A Social No alcohol and No tobacco Exam alert, oriented x 3, clear to auscultation bilaterally and regular rate & rhythm Airway Submandibular: within normal limits Cervical ROM: within normal limits Mallampati: Class II Dentition: false Pulmonary Chronic Obstructive Pulmonary Disease CV/HEM Deep Vein Thrombosis and Hypertension GI Gastroesophageal Reflux Disease achalasia Metabolic Morbid Obesity Anesthetic Plan ASA status: 2 Anesthesia: General Medications/Allergies Home Medications Medication Instructions Recorded Confirmed Last Taken Type calcium carbonate 300 mg (750 mg) 300 mg PO TID 07/23/20 05/09/23 02/18/23 History chewable tablet (Tums) cholecalciferol (vitamin D3) 25 25 mcg PO DAILY #100 caps 03/25/21 05/09/23 02/18/23 Rx mcg (1,000 unit) capsule bilberry 100 mg capsule 100 mg PO BID 06/24/21 05/09/23 02/18/23 History hydrochlorothiazide 25 mg tablet 25 mg PO DAILY blood 06/15/22 05/09/23 02/18/23 Rx pressure/swelling #90 tabs omeprazole 20 mg capsule,delayed 20 mg PO DAILY #30 caps 11/15/22 05/09/23 02/18/23 Rx release hawthorn hicks 525 mg PO DAILY 02/08/23 05/09/23 02/18/23 History magnesium 500 mg PO DAILY 02/08/23 05/09/23 02/18/23 History cetirizine 10 mg capsule (Zyrtec) 10 mg PO DAILY PRN Allergy Symptoms 02/19/23 05/09/23 02/19/23 History oxybutynin chloride 5 mg tablet 5 mg PO DAILY #30 tabs 04/05/23 05/09/23 Unknown Rx Allergies Allergy/AdvReac Type Severity Reaction Status Date / Time No Known Allergies Allergy Verified 04/25/23 14:15 [facility] Anesthesia Medical History Chronic phlebitis of superficial vein of left lower extremity Gastroesophageal reflux disease Herpes zoster dermatitis Hiatal hernia History of diverticulitis Hypertension Ovarian tumor Schatzki's ring Surgical History History of partial hysterectomy Hx of appendectomy Hx of bladder repair surgery Hx of cholecystectomy Family History Grandfather CAD (coronary artery disease) Lung disease Mother Cancer Diabetes Grandmother Dementia Family/Other Diabetes Brother Diabetes Father Lung disease Denies family history of Clotting disorder Chronic kidney disease (CKD) Suicide Anesthesia complication Bleeding disorder Stroke Social History Substance/Drug Use: never Data Anesthesia Urine 05/09/23 Range/Units 10:00 Urine Color Yellow (Yellow) Urine Appearance Clear (CLEAR) Urine pH 5 (5-7) Ur Specific [place] 1.025 (1.005-1.030) Urine Protein Neg (Negative) Urine Glucose (UA) Norm (Normal) Urine Ketones Negative (Negative) Urine Nitrate Negative (Negative) Urine Bilirubin Neg (Negative) Ur Leukocyte Esterase 1+ H (Negative) Urine RBC None (0-2) /hpf Urine WBC 5-10 H (0-5) /hpf Cardiac Studies: Echocardiogram 05/21/21 Sestamibi Stress Test (Cardiology) 05/27/21
[2023-05-10] VITALS (23 sets, daily range): BP systolic 110–180; BP diastolic 70–104; PULSE 50–87; RESP 12–18; TEMP 36.2–36.6; O2SAT 86–99
[2023-05-10] MEDS: enoxaparin 30 mg/0.3 mL Syringe SUBCUT (09:59)
[2023-05-10] MEDS: scopolamine 1.5 Patch 1 PATCH TRANSDERMA (10:00)
[2023-05-10] MEDS: sodium chloride 0.9% 1,000 ML 30 ML IV (10:01)
--- NOTE | 2023-05-10 10:03 | P.ANESUD_ITS ---
Pre-Anesthetic Update Pre-Anesthetic Assessment: Date of Surgery/Procedure: 05/10/23 Preop Kristen gnosis: Mixed urinary incontinence Proposed Procedure: Operation Date: 05/10/23 11:05 Proposed Procedures p Sling revision 26906,T83.329R(Not Applicable) - Marshall Chavez MD Any changes to Pre-Anesthetic Assessment?: No Last Intake: Intake Last Liquid Date 05/09/23 Last Liquid Time 20:00 Last Solid Date 05/09/23 Last Solid Time 20:00 Labs Last 48hrs: Urine 05/09/23 Range/Units 10:00 Urine Color Yellow (Yellow) Urine Appearance Clear (CLEAR) Urine pH 5 (5-7) Ur Specific Gravit y 1.025 (1.005-1.030) Urine Protein Neg (Negative) Urine Glucose (UA) Norm (Normal) Urine Ketones Negative (Negative) Urine Nitrate Negative (Negative) Urine Bilirubin Neg (Negative) Ur Leukocyte Claudia ase 1+ H (Negative) Urine RBC None (0-2) /hpf Urine WBC 5-10 H (0-5) /hpf Vitals: Blood Pressure 173/98 05/10/23 10:00 Oxygen Delivery Me thod Room Air 05/10/23 09:47 Exam: Pre-Anes Outpt Exam: alert, oriented x 3, clear to auscultation bilaterally and regular rate & rhythm Cardiac Studies: Echocardiogram 05/21/21 Sestamibi Stress Test (Cardiology) 05/27
--- NOTE | 2023-05-10 10:16 | PC.NURSE ---
Type and screen not collected due to patient refusing blood products, form signed and placed in chart.
[2023-05-10 11:02] LABS: Basophils # 0.1 10^3/uL (0.0-0.1); Basophils % 1.1 %; Eosinophils # 0.2 10^3/uL (0.0-0.8); Eosinophils % 3.5 %; Hematocrit 39.2 % (37.0-47.0); Hemoglobin 12.6 g/dL (11.5-15.3); Lymphocytes # 1.9 10^3/uL (0.8-4.8); Lymphocytes % 29.3 %; Mean Corpuscular HGB Conc 32.1 g/dL (30.0-36.0); Mean Corpuscular Hemoglobin 29.9 pg (28.0-34.0); Mean Corpuscular Volume 93.1 fl (81-99); Mean Platelet Volume 12.1 fL (7.4-10.4); Monocytes # 0.8 10^3/uL (0.2-0.9); Monocytes % 12.3 %; Neutrophils % 53.3 %; Nucleated Red Blood Cells % 0 %; Platelet Count 228 10^3/cmm (130-400); Red Blood Count 4.21 10^6/uL (4.1-5.3); White Blood Count 6.6 10^3/uL (4.0-10.0)
[2023-05-10 11:27] LABS: Alanine Aminotransferase 12 U/L (0-33); Alkaline Phosphatase 111 U/L (35-105); Anion Gap 12.3 (5-19); Aspartate Amino Transferase 19 U/L (0-32); Blood Urea Nitrogen 18 mg/dL (8-23); Calcium 8.8 mg/dL (8.5-10.5); Carbon Dioxide 25 mmol/L (22-29); Chloride 108 mmol/L (98-107); Globulin 2.4 g/dL (1.3-4.6); Glomerular Filtration Rate 82.7 mL/min (90-130); Glucose 73 mg/dL (65-115); Osmolality Calculated 292 mOsm/kg (285-295); Potassium 4.3 mmol/L (3.5-5.1); Sodium 141 mmol/L (136-145); Total Bilirubin 0.9 mg/dL (0.15-1.2); Total Protein 6.4 g/dL (6.6-8.7)
--- NOTE | 2023-05-10 11:40 | W.PM.OPSUD ---
Surgery/Procedure H&P Update DATE OF PROCEDURE: May 10, 2023 DATE H&P PERFORMED: 05/09/23 H&P UPDATE INFORMATION: I have reviewed H&P completed within last 30 days, I have examined patient prior to procedure and No changes to prior documentation PREOP DIAGNOSIS: Mixed urinary incontinence PLANNED PROCEDURE: Operation Date: 05/10/23 11:05 Proposed Procedures p Sling revision 78267,T83.712A(Not Applicable) - Marshall Chavez MD
[2023-05-10] MEDS: ceFOXitin 2,000 MG in sodium chloride 0.9% (plus) 50 ML 100 MG IV (11:55)
[2023-05-10] MEDS: lidocaine-epi 2% 20 mL INJ 10 ML INJECTION (13:08)
--- NOTE | 2023-05-10 13:15 | PM.OP ---
Operative Report Date of procedure: May 10, 2023 Pre-op diagnosis: Preop Diagnosis Mixed urinary incontinence, sling erosion Post-op diagnosis: same Post-op findings: sling partially exposed. Procedure done: Sling incision revision augmented with allograft Implants: Coloplast allograft Surgeon: Marshall Chavez MD Estimated blood loss (mL): 25 IV fluids (mL): 800 Urine output (mL): 50 Procedure: After obtaining informed consent, the patient was taken to the operating room and placed in the supine position, given general anesthesia, and prepped and draped in sterile fashion. The abdomen, vulva and vagina were prepped and draped in a sterile manner. A time out procedure was performed. The anterior vaginal mucosa beneath the midurethra was infiltrated with 2% lidocaine with epinephrine. A vertical midline incision was made anterior and posterior to the exposed sling mesh. Careful submucosal dissection was performed bilaterally superior and inferior to the exposed sling to undermine the mucosa. After adequate dissection was performed, bilaterally. A Coloplast allograft modified at time of application to fit spacea, 2 cm x 3 cm. The allograft was placed in front of ring mesh to be implanted facing the vagina mucosa. The vaginal mucosa was closed in interrupted locking fashion with 2-0 Vicryl. Then the Romeo catheter was removed and cystoscope was inserted. The bladder was filled with sterile water. Complete evaluation of the bladder mucosa was performed noting no lacerations, dimpling, tears, bleeding of the mucosa or muscular layers. Both ureteral orifices were identified. Prompt excretion of urine from both ureteral orifices was noted. Cystoscope was withdrawn. The Romeo catheter was replaced. Excellent hemostasis was obtained. A vaginal pack is placed overnight as postoperative support for the vaginal tissues after graft placement and closure of vaginal incisions. Sponge, lap, needle, and instrument counts were correct times three. The patient was taken to the recovery room, awake and in stable condition.
[2023-05-10] MEDS: fentaNYL 50 mcg/mL INJ 2mL IVP (13:32)
[2023-05-10] MEDS: ketorolac 30 mg/mL INJ IVP ×2 (14:58→21:12)
--- NOTE | 2023-05-10 15:03 | ANE.PACU2 ---
Inpatient post-anesthesia follow up: Airway intact: Yes Vital signs: Temperature 97.2 F Pulse Rate 64 Respiratory Rate 13 Blood Pressure 159/98 Pulse Oximetry 92 Oxygen Delivery Me thod Room Air Oxygen Flow Rate 6 Fraction of Inspir ed Oxygen Hydration adequate: Yes Nausea and vomiting: No Pain level: 2 Mental status: Baseline
[2023-05-10] MEDS: alum-mag-hydroxide-sime 30 mL UDC PO (20:13)
[2023-05-10] MEDS: docusate sodium 100 mg Capsule PO (21:11)
[2023-05-11] VITALS (7 sets, daily range): BP systolic 115–157; BP diastolic 58–89; PULSE 53–77; RESP 16–17; TEMP 36.4–36.7; O2SAT 94–98
[2023-05-11] MEDS: ketorolac 30 mg/mL INJ IVP (02:56)
--- NOTE | 2023-05-11 05:22 | PC.NURSE ---
Vaginal packing removed on 05-11-23 @0515 small amount of blood on packing noted. Pt tolerated.
[2023-05-11 05:34] LABS: Hematocrit 37.6 % (37.0-47.0); Hemoglobin 12.2 g/dL (11.5-15.3); Mean Corpuscular HGB Conc 32.4 g/dL (30.0-36.0); Mean Corpuscular Hemoglobin 30.3 pg (28.0-34.0); Mean Corpuscular Volume 93.5 fl (81-99); Mean Platelet Volume 11.2 fL (7.4-10.4); Platelet Count 210 10^3/cmm (130-400); Red Blood Count 4.02 10^6/uL (4.1-5.3); Red Cell Distribution Width 14.6 % (12.1-15.1); White Blood Count 10.7 10^3/uL (4.0-10.0)
--- NOTE | 2023-05-11 07:56 | P.DS_ITS ---
Discharge Providers AESTHETICS INSTRUCTOR Date of Admission: 05/10/23 12:43 Date of Discharge: 05/11/23 Attending Provider at Admission: Marshall Chavez MD Attending Provider at Discharge: Marshall Chavez MD Primary AESTHETICS INSTRUCTOR: Marshall Chavez MD Primary Care Provider: Jacqui Becerra MD Reason for Visit Reason for Visit: T83.061A Hospital Course Hospital Course Mrs. Hameed 68-year-old female presents single incision mid urethral sling for the treatment of mixed urinary incontinence. Developed partial dehiscence of the incision. She was admitted for incision revision which was repaired without complication augmented with allograft. Overnight observation was uneventful. Tolerating diet well. Ambulating without difficulty. She is afebrile hemodynamically stable postoperative day 1. Patient was counseled regarding pelvic rest for 6 weeks (no sex, no tampons, no vaginal douches). Return to the emergency room if any fever, increased bleeding or pain. Physical Exam Narrative: GA: Alert and oriented ?3. HEENT: WNL. Heart: Regular rate and rhythm. Lungs: Clear to auscultation bilaterally. Abdomen: Bowel sounds present, nontender. HOG COUNTER: No bleeding. Extremities: No edema, no cyanosis, no calves pain. Urinary Catheter Management: Romeo: Cath Placed During This Visit: yes, but has since been removed by the nurse Reason for Continuing Indwelling Catheter: Decision to DC Catheter Urinary Catheter Date of Insertion: 05/10/23 Urinary Catheter Time of Insertion: 12:35 Date Urinary Catheter Removed: 05/11/23 Time Urinary Catheter Discontinued: 05:15 History History History 2 Term 2 0 Miscarriages/Ectopic 0 Living Children 2 Discharge Data Studies Completed and Pending Laboratory Results WBC 10.7 10^3/uL (4.0-10.0) H 05/11/23 05:15 RBC 4.02 10^6/uL (4.1-5.3) L 05/11/23 05:15 Hgb 12.2 g/dL (11.5-15.3) 05/11/23 05:15 Hct 37.6 % (37.0-47.0) 05/11/23 05:15 MCV 93.5 fl (81-99) 05/11/23 05:15 MCH 30.3 pg (28.0-34.0) 05/11/23 05:15 MCHC 32.4 g/dL (30.0-36.0) 05/11/23 05:15 RDW 14.6 % (12.1-15.1) 05/11/23 05:15 Plt Count 210 10^3/cmm (130-400) 05/11/23 05:15 MPV 11.2 fL (7.4-10.4) H 05/11/23 05:15 Neut % (Auto) 53.3 % 05/10/23 10:02 Lymph % (Auto) 29.3 % 05/10/23 10:02 [place] % (Auto) 12.3 % 05/10/23 10:02 Eos % (Auto) 3.5 % 05/10/23 10:02 Baso % (Auto) 1.1 % 05/10/23 10:02 Neut # (Auto) 3.50 10^3/uL (1.8-7.7) 05/10/23 10:02 Lymph # (Auto) 1.9 10^3/uL (0.8-4.8) 05/10/23 10:02 [place] # (Auto) 0.8 10^3/uL (0.2-0.9) 05/10/23 10:02 Eos # (Auto) 0.2 10^3/uL (0.0-0.8) 05/10/23 10:02 Baso # (Auto) 0.1 10^3/uL (0.0-0.1) 05/10/23 10:02 Nucleated RBC % (auto) 0 % 05/10/23 10:02 Nucleated RBCs # 0.0 /100WBC 05/10/23 10:02 Sodium 141 mmol/L (136-145) 05/10/23 10:02 Potassium 4.3 mmol/L (3.5-5.1) 05/10/23 10:02 Chloride 108 mmol/L (98-107) H 05/10/23 10:02 Carbon Dioxide 25 mmol/L (22-29) 05/10/23 10:02 Anion Gap 12.3 (5-19) 05/10/23 10:02 BUN 18 mg/dL (8-23) 05/10/23 10:02 Creatinine 0.7 mg/dL (0.5-0.9) 05/10/23 10:02 GFR Calculation 82.7 mL/min (90-130) L 05/10/23 10:02 Glucose 73 mg/dL (65-115) 05/10/23 10:02 Calculated Osmolality 292 mOsm/kg (285-295) 05/10/23 10:02 Calcium 8.8 mg/dL (8.5-10.5) 05/10/23 10:02 Total Bilirubin 0.9 mg/dL (0.15-1.2) 05/10/23 10:02 AST 19 U/L (0-32) 05/10/23 10:02 ALT 12 U/L (0-33) 05/10/23 10:02 Alkaline Phosphatase 111 U/L (35-105) H 05/10/23 10:02 Total Protein 6.4 g/dL (6.6-8.7) L 05/10/23 10:02 Albumin 4.0 g/dL (3.5-5.2) 05/10/23 10:02 Globulin 2.4 g/dL (1.3-4.6) 05/10/23 10:02 Urine Color Yellow (Yellow) 05/09/23 10:00 Urine Appearance Clear (CLEAR) 05/09/23 10:00 Urine pH 5 (5-7) 05/09/23 10:00 Ur Specific [place] 1.025 (1.005-1.030) 05/09/23 10:00 Urine Protein Neg (Negative) 05/09/23 10:00 Urine Glucose (UA) Norm (Normal) 05/09/23 10:00 Urine Ketones Negative (Negative) 05/09/23 10:00 Urine Blood Neg (Negative) 05/09/23 10:00 Urine Nitrate Negative (Negative) 05/09/23 10:00 Urine Bilirubin Neg (Negative) 05/09/23 10:00 Urine Urobilinogen Norm mg/dL (Negative) 05/09/23 10:00 Ur Leukocyte Esterase 1+ (Negative) H 05/09/23 10:00 Urine RBC None /hpf (0-2) 05/09/23 10:00 Urine WBC 5-10 /hpf (0-5) H 05/09/23 10:00 Ur Squamous Epith Cells 0-4 /hpf (0-5) H 05/09/23 10:00 Amorphous Sediment Not Reportable 05/09/23 10:00 Urine Bacteria Trace /hpf (NONE) 05/09/23 10:00 Vitals Last Vital Signs Temp 97.5 F L 05/11/23 04:00 Pulse 77 05/11/23 04:00 Resp 17 05/11/23 04:00 BP 144/83 05/11/23 04:00 Pulse Ox 95 05/11/23 04:00 O2 Del Method Room Air 05/11/23 04:00 O2 Flow Rate 6 05/10/23 13:35 Discharge Plan Discharge Patient Disposition: Home Condition: Stable Prescriptions: New acetaminophen 325 mg capsule 325 mg PO Q4H PRN (Reason: fever or pain) Qty: 60 0RF ibuprofen 800 mg tablet 800 mg PO TID PRN (Reason: pain) Qty: 60 0RF Continued calcium carbonate [Tums] 300 mg (750 mg) tablet,chewable 300 mg PO TID bilberry 100 mg capsule 100 mg PO BID omeprazole 20 mg capsule,delayed release(DR/EC) 20 mg PO DAILY Qty: 30 2RF oxybutynin chloride 5 mg tablet 5 mg PO DAILY Qty: 30 2RF cholecalciferol (vitamin D3) 25 mcg (1,000 unit) capsule 25 mcg PO DAILY Qty: 100 12RF hydrochlorothiazide 25 mg tablet 25 mg PO DAILY Qty: 90 1RF hawthorn hicks capsule 525 mg PO DAILY magnesium 500 mg PO DAILY Zyrtec 10 mg Capsule 10 mg PO DAILY PRN (Reason: Allergy Symptoms) Discharge Orders: Discharge Order (Routine); Ordered 05/11/23 Ordered By: Marshall Chavez Discharge Diet: Usual diet Discharge Activity: Limit activity as instructed Patient Instructions: Opioid Safety, Bladder Sling for Women (GEN) Activity Restrictions/Additional Instructions: 1. Please call [facility] on next working day to make your post-operative appointment in 2 weeks. 2. Please stay home until you come back to the clinic on first post- hospatilization check up. 3. Please follow instructions on your medications CAREFULLY. 4. If you have abdominal incision, do not cover it unless dressing is necessary because of drainage. OK to shower, but avoid bath. Leave steri-strips until they fall off. If they are still on one week after surgery, you may remove them. 5. If you had vaginal surgery or vaginal repair, Dr. Chavez may instruct you to take SITZ bath. 6. Yellow, blood tinged odorous vaginal discharge is usually normal after hysterectomy or vaginal surgeries. 7. No SEXUAL INTERCOURSE, tampons, or douches until you are completely released from the post-operative care. 8. Avoid constipation by eating right and maybe using some Metamucil or Milk of Magnesia. 9. All prescription refills are given during the working hours. Please do no wait till it runs out. Call the clinic at [phone] before your medication runs out. The clinic will get in touch with your doctor to prescribe medications if necessary. 10. Please remain within 40 mile radius from our hospital because emergencies do happen now and then during the post-operative period. 11. If you have stairs at home, take one step at a time slowly and minimize the number of trips. It helps to stay in one floor for the next few days. No lifting except what you can lift by one hand until you are released from the post-operative care. 12. Driving is discouraged until you are well healed. It may be 3-4 weeks before you feel strong enough to drive. You should be able to turn and look through the rear window without pain and you should be able to push the brake pedal very hard without pain before you drive. No fast rules, but SAFETY should be your primary concern. DO NOT drive if you are on sedating medications such as narcotics. 13. Call the clinic (during working hours) to make urgent appointment or go to the Emergency room, if any of the following occurs: i. Vaginal bleeding becomes heavy, more than a period. ii. Incision becomes red and sore, or drains pus. iii. Your TEMPERATURE is over 100.4F or you have chill. iv. IV site becomes red and swollen (a little ``knot?? is usually OK) v. Persistent nausea and vomiting vi. Persistent constipation or diarrhea vii. Rash or allergic reaction to medications. Discharge Attestations AESTHETICS INSTRUCTOR Time Spent in Discharge Care*: greater than 30 min Coding Level of Care Code Acute Code for Chg Fwd Diagnoses
[2023-05-11] MEDS: pantoprazole DR 40 mg Tablet PO (08:36)
[2023-05-11] MEDS: hydroCHLOROthiazide 25 mg Tablet PO (08:37)
[2023-05-11] MEDS: docusate sodium 100 mg Capsule PO (08:38)
[2023-05-11] MEDS: cholecalciferol (vitamin D3) 1,000 unit Tablet 1000 UNIT PO (08:38)
[2023-05-11] MEDS: oxybutynin 5 mg Tablet PO (08:38)
== END 2023-05-11 10:25 | disposition home or self-care (01) ==
LOC: OBGYN 12:43
PROVIDERS: Admitting Provider Obstetrics & Gynecology; PCP Family Medicine; Visit Provider Obstetrics & Gynecology
PROC: (CPT 57288; principal; 2023-05-10 11:05)
DX: N39.46 Mixed incontinence (principal); T83.712A Erosion of implanted urethral mesh to surrounding organ or tissue, initial encounter; J44.9 Chronic obstructive pulmonary disease, unspecified; I10 Essential (primary) hypertension; Z86.718 Personal history of other venous thrombosis and embolism; K21.9 Gastro-esophageal reflux disease without esophagitis; Y99.9 Unspecified external cause status
CPT/HCPCS: 57287; 36415; 51798; 80053; 81001; 85025; 85027; C1762; G0378; J0694; J1100; J1650; J1885; J2405; J2704; J3010; J3490; J7030

== ENCOUNTER 2023-07-09 22:09 | Emergency (ER) | payer MEDICARE, SELFPAY ==
[2023-07-09 22:14] VITALS: BP 161/98; PULSE 88; RESP 20; TEMP 36.6; O2SAT 97; BMI 31.7
--- NOTE | 2023-07-09 22:15 | ED_ITS ---
HPI - General Adult General: Chief complaint: Back Pain/Injury Stated complaint: Wants a lung X-Ray Time Seen by Provider: 07/09/23 22:15 History of Present Illness: 68-year-old female comes in today with complaints of left thoracic back pain. Patient reports that she had similar pain before when she had a pneumothorax on her left side about 30 years ago. Patient denies any falls or injuries. Patient denies any fever or chills. Patient reports no cough. Patient does have a history of hypertension, overactive bladder, and osteoporosis. Review of Systems General: Reports: 10 or more systems reviewed and unremarkable except in HPI and below Musc: Reports: back pain PFSH ED PFSH: Medical History Chronic phlebitis of superficial vein of left lower extremity Gastroesophageal reflux disease Herpes zoster dermatitis Hiatal hernia History of diverticulitis Hypertension Ovarian tumor Schatzki's ring Surgical History History of partial hysterectomy Hx of appendectomy Hx of bladder repair surgery (~05/10/23) Sling incision revision augmented with allograft, performed by [facility] for mixed urinary incontinence, sling erosion Hx of cholecystectomy Family History Grandfather CAD (coronary artery disease) Lung disease Mother Cancer Diabetes Grandmother Dementia Family/Other Diabetes Brother Diabetes Father Lung disease Denies family history of Clotting disorder Chronic kidney disease (CKD) Suicide Anesthesia complication Bleeding disorder Stroke Social History Substance/Drug Use: never Physical Exam Const: COMMON NORMALS: alert HENMT: COMMON NORMALS: normocephalic HEAD & SCALP: normocephalic MOUTH: Normal oral and palatal mucosa present Neck/C-Spine: COMMON NORMALS: full ROM and no meningeal signs Lymph: LYMPHATIC: no lymphadenopathy noted Chest: CHEST: Yes tenderness (Posterior thoracic left side) Resp: COMMON NORMALS: normal respiratory effort and clear to auscultation bilaterally AUSCULTATION: clear to auscultation bilaterally Cardio: COMMON NORMALS: regular rate and regular rhythm RATE: regular rate RHYTHM: regular rhythm GI: PALPATION: No Tenderness to palpation present (GI) Back/Pelvis: THORACIC SPINE/UPPER BACK: Yes paraspinal muscle tenderness Thoracic paraspinal muscle tenderness: left Extremity: COMMON NORMALS: no pedal edema Neuro: SENSORIUM/ORIENTATION: Yes alert MENINGEAL SIGNS: Yes no meningeal signs Skin: COMMON NORMALS: turgor normal GENERAL SKIN EXAM: turgor normal Course Vital Signs: Vital signs: Vital Signs Temperature 98 F 07/09/23 22:14 Pulse Rate 90 07/09/23 22:39 Respiratory Rate 16 07/09/23 22:39 Blood Pressure 161/98 07/09/23 22:14 Pulse Oximetry 97 07/09/23 22:39 Oxygen Delivery Me thod Room Air 07/09/23 22:39 MDM - General Adult Medical Decision Making Patient comes in with back pain to the left thoracic. On exam is tender to palpation in the left posterior thorax. No crepitus or subcu emphysema is noted to palpation of the right posterior rib area. Some tenderness is noted in the left paraspinous muscles around T10 and T9. Patient does have some significant kyphosis. Differential diagnosis includes but not limited to intervertebral disc disease, facet arthritis, pneumothorax, costochondritis. X-ray of the chest noted no sign of pneumothorax. Urinalysis was unremarkable. I believe patient probably has musculoskeletal back pain. Patient does have a kyphotic spine so intervertebral disc disease or facet arthritis may be a concern. Patient is very tender and pain is reproducible to palpation and touch. No rash or other signs of illness are noted. Reviewed exam with patient with recommendations for treatment musculoskeletal pain. Patient reported understanding agreed to plan. Lab Data Radiology Impressions Chest X-Ray 07/09/23 22:15 IMPRESSION: No acute findings. No strong evidence of pneumothorax. Laboratory Results Urine Color Colorless (Yellow) 07/09/23 23:36 Urine Appearance Clear (CLEAR) 07/09/23 23:36 Urine pH 5 (5-7) 07/09/23 23:36 Ur Specific [place] 1.020 (1.005-1.030) 07/09/23 23:36 Urine Protein Neg (Negative) 07/09/23 23:36 Urine Glucose (UA) Norm (Normal) 07/09/23 23:36 Urine Ketones Negative (Negative) 07/09/23 23:36 Urine Blood Neg (Negative) 07/09/23 23:36 Urine Nitrate Negative (Negative) 07/09/23 23:36 Urine Bilirubin Neg (Negative) 07/09/23 23:36 Urine Urobilinogen Neg mg/dL (Negative) 07/09/23 23:36 Ur Leukocyte Esterase Trace (Negative) H 07/09/23 23:36 Urine RBC None /hpf (0-2) 07/09/23 23:36 Urine WBC 0-4 /hpf (0-5) H 07/09/23 23:36 Ur Squamous Epith Cells None /hpf (0-5) 07/09/23 23:36 Amorphous Sediment Not Reportable 07/09/23 23:36 Urine Bacteria None /hpf (NONE) 07/09/23 23:36 Urine Mucus 1+ /hpf 07/09/23 23:36 All radiology interpretation(s) finalized by discharge Discharge Plan Discharge Patient Disposition: Home Clinical Impression: Acute left-sided thoracic back pain Condition: Stable Prescriptions: No Action calcium carbonate [Tums] 300 mg (750 mg) tablet,chewable 300 mg PO TID bilberry 100 mg capsule 100 mg PO BID omeprazole 20 mg capsule,delayed release(DR/EC) 20 mg PO DAILY Qty: 30 2RF oxybutynin chloride 5 mg tablet 5 mg PO DAILY Qty: 30 2RF cholecalciferol (vitamin D3) 25 mcg (1,000 unit) capsule 25 mcg PO DAILY Qty: 100 12RF hydrochlorothiazide 25 mg tablet 25 mg PO DAILY Qty: 90 1RF hawthorn hicks capsule 525 mg PO DAILY magnesium 500 mg PO DAILY Zyrtec 10 mg Capsule 10 mg PO DAILY PRN (Reason: Allergy Symptoms) acetaminophen 325 mg capsule 325 mg PO Q4H PRN (Reason: fever or pain) Qty: 60 0RF Discharge Orders: Discharge ED (Routine); Ordered 07/10/23 Ordered By: Bruce Gerard Referrals: Jacqui Becerra MD [Primary Care Provider] - Discharge Diet: Usual diet Discharge Activity: Increase activity as tolerated Patient Instructions: Back Pain (ED) Activity Restrictions/Additional Instructions: Avoid strenuous activity. Try to maintain light normal activity. Use acetaminophen 1 to 2 tablets every 4-6 hours as needed for pain. Drink plenty of water with medication. Follow-up with primary care for further instruction and evaluation. Return to ER for worsening symptoms such as high fever greater than 100.4, increasing shortness of breath, blood in vomit or stool, or new concerns. Coding Level of Care Code ED Butadiene Compressor Operator for Aidan Villavicencio
--- NOTE | 2023-07-09 22:15 | XRR_ITS ---
PROCEDURE INFORMATION: Exam: XR Chest Exam date and time: 07/09/2023 10:28 PM Age: 68 years old Clinical indication: Chest pressure and left-sided; Patient HX: Sudden onset left side chest pain; HX of pneumothorax TECHNIQUE: Imaging protocol: Radiologic exam of the chest. Views: 1 view. COMPARISON: CR XR chest 2V* [id number] 12/27/2022 12:28 PM FINDINGS: Lungs: Mild COPD. No consolidation. Pleural spaces: Unremarkable. No pleural effusion. No pneumothorax. Heart/Mediastinum: Small to moderate-sized hiatal hernia. No cardiomegaly. Advanced diffuse vascular calcification noted. Bones/joints: Unremarkable. XR/XR chest 1V [id number] IMPRESSION: No acute findings. No strong evidence of pneumothorax.
[2023-07-09 22:39] VITALS: PULSE 90; RESP 16; O2SAT 97
[2023-07-10 00:12] LABS: Add Urine Culture? No; Add Urine Microscopic? YES; Bilirubin Urine Neg (Negative); Blood Urine Neg (Negative); Glucose Urine UA Norm (Normal); Ketones Urine Negative (Negative); Leukocyte Esterase Urine Trace (Negative); Mucus Urine 1+ /hpf; Nitrate Urine Negative (Negative); Protein Urine Neg (Negative); Urine Appearance Clear (CLEAR); Urine Color Colorless (Yellow); Urobilinogen Urine Neg (Negative); WBC Urine 0-4 /hpf (0-5); pH Urine 5 (5-7)
[2023-07-10 00:28] VITALS: PULSE 84; RESP 16; O2SAT 97
== END 2023-07-10 00:26 | disposition home or self-care (01) ==
PROVIDERS: Emergency Provider Nurse Practitioner Family; PCP Family Medicine
DX: M54.6 Pain in thoracic spine (principal); I10 Essential (primary) hypertension
CPT/HCPCS: 71045; 81001; 81003; 99283